=== PATIENT | male | born 2000 | race African-American/Black ===

== ENCOUNTER 2024-07-31 13:49 | Inpatient (IN) ==
[2024-07-31 16:03] LABS: Urine Appearance Clear; Urine Bilirubin Negative (Negative); Urine Blood 3+ (Negative); Urine Glucose Negative (Negative); Urine Ketones Negative (Negative); Urine Nitrite Negative (Negative); Urine Protein 1+ (>=30 mg/dL) (Negative); Urine Specific Gravity 1.005 (1.002-1.030); Urine Urobilinogen Negative (Negative)
[2024-07-31 16:04] LABS: Urine Bacteria Absent /HPF (Absent); Urine Red Blood Cell Trace(0-2/hpf) /HPF (0-Trace); Urine White Blood Cell Trace(0-5/hpf) /HPF (0-Trace)
[2024-07-31 16:14] LABS: ABS Basophils 0.1 10^3/uL (0.0-0.1); ABS Eosinophils 0.1 10^3/uL (0.0-0.5); ABS Lymphocytes 2.4 10^3/uL (1.0-4.8); ABS Monocytes 0.9 10^3/uL (0.0-1.1); ABS Nucleated RBC 0.01 10^3/ul; Eosinophil % 0.6 %; Hematocrit 48.8 % (38-53); Hemoglobin 15.8 g/dL (13.2-16.3); Mean Corpuscular Hemoglobin 27.6 pg (27-33); Mean Corpuscular Hgb Conc 32.4 g/dL (31-36); Mean Corpuscular Volume 85.1 fL (80-97); Mean Platelet Volume 9.4 fL (7.5-11.2); Nucleated Red Blood Cells % 0.1 %/100WBC (0.0-0.8); Platelet Count 222 10^3/uL (150-450); Red Blood Count 5.74 10^6/uL (4.06-5.63); Red Cell Distribution Width 16.3 % (12-17); White Blood Count 10.4 10^3/uL (3.6-10.2)
[2024-07-31 16:26] LABS: Urine Color Amber
[2024-07-31] MEDS: Lactated Ringers 1000 ml BAG 1,000 ML IV ONE ×3 (17:04→18:45)
[2024-07-31 17:27] LABS: Blood Urea Nitrogen 9 mg/dL (6-24); CO2 Carbon Dioxide 35 mmol/L (22-32); Calcium 9.6 mg/dL (8.6-10.3); Chloride 103 mmol/L (101-111); Creatinine, Serum 0.99 mg/dL (0.67-1.17); Glucose 79 mg/dL (70-100); Potassium 4.3 mmol/L (3.5-5.0); Sodium 138 mmol/L (135-145); eGFR CKD-EPI 108.4 (>60)
[2024-07-31 17:45] LABS: AST 1436 U/L (13-39)
[2024-07-31 18:27] LABS: Creatine Kinase 200673 U/L (10-223)
[2024-07-31 18:35] LABS: ALT 321 U/L (7-52); Albumin 4.5 g/dL (3.5-5.7); Albumin/Globulin Ratio 1.9 (1-3); Alkaline Phosphatase 48 U/L (35-149); Globulin 2.4 g/dL (2-4); Magnesium 2.2 mg/dL (1.9-2.7); Total Bilirubin 1.1 mg/dL (0.2-1.0); Total Protein 6.9 g/dL (6.4-8.9)
[2024-07-31] MEDS: Lactated Ringers 1000 ml BAG 1,000 ML IV SCH ×2 (21:02→22:20)
[2024-08-01 07:50] LABS: ABS Eosinophils 0.2 10^3/uL (0.0-0.5); ABS Lymphocytes 2.4 10^3/uL (1.0-4.8); ABS Monocytes 0.7 10^3/uL (0.0-1.1); ABS Neutrophils 4.5 10^3/uL (1.5-7.6); ABS Nucleated RBC 0.01 10^3/ul; Eosinophil % 2.9 %; Hematocrit 43.6 % (38-53); Hemoglobin 14.5 g/dL (13.2-16.3); Lymphocyte % 30.8 %; Mean Corpuscular Hemoglobin 28.1 pg (27-33); Mean Corpuscular Hgb Conc 33.3 g/dL (31-36); Mean Corpuscular Volume 84.2 fL (80-97); Mean Platelet Volume 9.5 fL (7.5-11.2); Nucleated Red Blood Cells % 0.1 %/100WBC (0.0-0.8); Platelet Count 195 10^3/uL (150-450); Red Blood Count 5.17 10^6/uL (4.06-5.63); Red Cell Distribution Width 16.1 % (12-17); White Blood Count 7.9 10^3/uL (3.6-10.2)
[2024-08-01 08:24] LABS: Creatinine, Serum 0.92 mg/dL (0.67-1.17); Potassium 4.8 mmol/L (3.5-5.0); eGFR CKD-EPI 118.4 (>60)
[2024-08-01 08:42] LABS: Albumin 3.6 g/dL (3.5-5.7); Albumin/Globulin Ratio 1.7 (1-3); Globulin 2.1 g/dL (2-4); Magnesium 1.9 mg/dL (1.9-2.7); Phosphorus 4.3 mg/dL (2.5-5.0); Total Bilirubin 1.3 mg/dL (0.2-1.0); Total Protein 5.7 g/dL (6.4-8.9)
[2024-08-01 10:04] LABS: Uric Acid 4.6 mg/dL (4.4-7.6)
[2024-08-01] MEDS: Lactated Ringers 1000 ml BAG 1,000 ML IV SCH ×2 (10:09→20:05)
[2024-08-01 15:20] LABS: Blood Urea Nitrogen 9 mg/dL (6-24); CO2 Carbon Dioxide 40 mmol/L (22-32); Chloride 106 mmol/L (101-111); Creatinine, Serum 1.11 mg/dL (0.67-1.17); Glucose 111 mg/dL (70-100); Potassium 4.5 mmol/L (3.5-5.0); Sodium 140 mmol/L (135-145); eGFR CKD-EPI 94.5 (>60)
[2024-08-01 16:31] LABS: ALT 494 U/L (7-52); AST 1873 U/L (13-39); Albumin 4.1 g/dL (3.5-5.7); Alkaline Phosphatase 45 U/L (35-149); Globulin 2.1 g/dL (2-4); Total Bilirubin 0.9 mg/dL (0.2-1.0); Total Protein 6.2 g/dL (6.4-8.9)
[2024-08-01 17:25] LABS: Creatine Kinase 157281 U/L (10-223)
[2024-08-01] MEDS ORDERED: Lactated Ringers 1000 ml BAG 1,000 ML IV SCH (19:00)
[2024-08-01 21:44] LABS: INR 1.07 (0.85-1.14)
[2024-08-01 22:21] LABS: Albumin/Globulin Ratio 1.8 (1-3); Alkaline Phosphatase 46 U/L (35-149); Blood Urea Nitrogen 9 mg/dL (6-24); Calcium 9.5 mg/dL (8.6-10.3); Chloride 104 mmol/L (101-111); Creatinine, Serum 1.09 mg/dL (0.67-1.17); Globulin 2.2 g/dL (2-4); Glucose 88 mg/dL (70-100); Magnesium 1.9 mg/dL (1.9-2.7); Potassium 4.6 mmol/L (3.5-5.0); Sodium 138 mmol/L (135-145); Total Bilirubin 0.5 mg/dL (0.2-1.0); Total Protein 6.2 g/dL (6.4-8.9); eGFR CKD-EPI 96.6 (>60)
[2024-08-01 22:24] LABS: CO2 Carbon Dioxide 41 mmol/L (22-32)
[2024-08-01 22:34] LABS: ALT 562 U/L (7-52); AST 2091 U/L (13-39)
[2024-08-01 23:13] LABS: Creatine Kinase 261248 U/L (10-223)
[2024-08-02 05:36] LABS: ABS Eosinophils 0.2 10^3/uL (0.0-0.5); ABS Lymphocytes 2.4 10^3/uL (1.0-4.8); ABS Monocytes 0.7 10^3/uL (0.0-1.1); ABS Neutrophils 4.3 10^3/uL (1.5-7.6); ABS Nucleated RBC 0.01 10^3/ul; Eosinophil % 3.2 %; Hematocrit 41.5 % (38-53); Hemoglobin 13.7 g/dL (13.2-16.3); Mean Corpuscular Hemoglobin 27.7 pg (27-33); Mean Corpuscular Volume 83.8 fL (80-97); Mean Platelet Volume 9.6 fL (7.5-11.2); Nucleated Red Blood Cells % 0.1 %/100WBC (0.0-0.8); Platelet Count 185 10^3/uL (150-450); Red Blood Count 4.95 10^6/uL (4.06-5.63); Red Cell Distribution Width 15.8 % (12-17); White Blood Count 7.7 10^3/uL (3.6-10.2)
[2024-08-02 06:12] LABS: Blood Urea Nitrogen 7 mg/dL (6-24); CO2 Carbon Dioxide 38 mmol/L (22-32); Calcium 9.6 mg/dL (8.6-10.3); Chloride 104 mmol/L (101-111); Creatinine, Serum 0.92 mg/dL (0.67-1.17); Glucose 87 mg/dL (70-100); Potassium 4.2 mmol/L (3.5-5.0); Sodium 136 mmol/L (135-145); eGFR CKD-EPI 118.4 (>60)
[2024-08-02 07:07] LABS: ALT 552 U/L (7-52); AST 1939 U/L (13-39); Albumin 3.8 g/dL (3.5-5.7); Albumin/Globulin Ratio 1.9 (1-3); Alkaline Phosphatase 38 U/L (35-149); Magnesium 1.8 mg/dL (1.9-2.7); Phosphorus 3.9 mg/dL (2.5-5.0); Total Bilirubin 0.7 mg/dL (0.2-1.0); Total Protein 5.8 g/dL (6.4-8.9)
[2024-08-02 07:39] LABS: Creatine Kinase 188888 U/L (10-223)
[2024-08-02] MEDS: Lactated Ringers 1000 ml BAG 1,000 ML IV SCH ×2 (08:44→11:53)
[2024-08-02] MEDS: Magnesium Sulfate 2 gm BAG 2 GM/50 ML BAG IVPB ONE (09:31)
[2024-08-02 14:04] LABS: Blood Urea Nitrogen 9 mg/dL (6-24); CO2 Carbon Dioxide 40 mmol/L (22-32); Calcium 10.1 mg/dL (8.6-10.3); Chloride 103 mmol/L (101-111); Creatinine, Serum 1.03 mg/dL (0.67-1.17); Glucose 126 mg/dL (70-100); Potassium 4.4 mmol/L (3.5-5.0); Sodium 138 mmol/L (135-145); eGFR CKD-EPI 103.4 (>60)
[2024-08-02 14:19] LABS: Hematocrit 43.1 % (38-53); Hemoglobin 14.6 g/dL (13.2-16.3); Mean Corpuscular Hemoglobin 28.5 pg (27-33); Mean Corpuscular Hgb Conc 33.8 g/dL (31-36); Mean Corpuscular Volume 84.3 fL (80-97); Red Blood Count 5.11 10^6/uL (4.06-5.63); Red Cell Distribution Width 15.8 % (12-17); White Blood Count 8.3 10^3/uL (3.6-10.2)
[2024-08-02 14:27] LABS: ALT 673 U/L (7-52); AST 2252 U/L (13-39)
[2024-08-02 14:48] LABS: ABS Basophils 0.1 10^3/uL (0.0-0.1); ABS Eosinophils 0.2 10^3/uL (0.0-0.5); ABS Lymphocytes 1.6 10^3/uL (1.0-4.8); ABS Monocytes 0.4 10^3/uL (0.0-1.1); Albumin 4.3 g/dL (3.5-5.7); Albumin/Globulin Ratio 1.9 (1-3); Alkaline Phosphatase 53 U/L (35-149); Eosinophil % 1.9 %; Globulin 2.3 g/dL (2-4); Lymphocyte % 19.7 %; Mean Platelet Volume 10.4 fL (7.5-11.2); Nucleated Red Blood Cells % 0.1 %/100WBC (0.0-0.8); Platelet Count 200 10^3/uL (150-450); Total Bilirubin 0.6 mg/dL (0.2-1.0); Total Protein 6.6 g/dL (6.4-8.9)
[2024-08-02 15:29] LABS: Creatine Kinase 69528 U/L (10-223)
[2024-08-03] MEDS: Lactated Ringers 1000 ml BAG 1,000 ML IV SCH ×2 (08:22→10:05)
[2024-08-03 09:08] LABS: Hematocrit 43.5 % (38-53); Hemoglobin 14.4 g/dL (13.2-16.3); Mean Corpuscular Hemoglobin 27.9 pg (27-33); Mean Corpuscular Hgb Conc 33.2 g/dL (31-36); Red Blood Count 5.18 10^6/uL (4.06-5.63); Red Cell Distribution Width 15.8 % (12-17)
[2024-08-03 09:22] LABS: Calcium 9.5 mg/dL (8.6-10.3); Creatinine, Serum 0.83 mg/dL (0.67-1.17); Potassium 4.4 mmol/L (3.5-5.0); eGFR CKD-EPI 124.6 (>60)
[2024-08-03 09:31] LABS: Albumin/Globulin Ratio 1.7 (1-3); Globulin 2.3 g/dL (2-4); Total Bilirubin 0.7 mg/dL (0.2-1.0); Total Protein 6.3 g/dL (6.4-8.9)
[2024-08-03 09:35] LABS: ABS Basophils 0.1 10^3/uL (0.0-0.1); ABS Eosinophils 0.2 10^3/uL (0.0-0.5); ABS Lymphocytes 1.7 10^3/uL (1.0-4.8); ABS Monocytes 0.4 10^3/uL (0.0-1.1); ABS Neutrophils 4.2 10^3/uL (1.5-7.6); ABS Nucleated RBC 0.01 10^3/ul; Eosinophil % 2.9 %; Large Platelets Present; Lymphocyte % 26.5 %; Nucleated Red Blood Cells % 0.1 %/100WBC (0.0-0.8); Platelet Count 203 10^3/uL (150-450); Tear Drop Cells 2+; White Blood Count 6.5 10^3/uL (3.6-10.2)
[2024-08-03 22:01] LABS: Calcium 9.9 mg/dL (8.6-10.3); Creatinine, Serum 0.86 mg/dL (0.67-1.17); Potassium 4.5 mmol/L (3.5-5.0); eGFR CKD-EPI 123.2 (>60)
[2024-08-03 22:23] LABS: Albumin 4.1 g/dL (3.5-5.7); Albumin/Globulin Ratio 1.8 (1-3); Globulin 2.3 g/dL (2-4); Total Bilirubin 0.4 mg/dL (0.2-1.0); Total Protein 6.4 g/dL (6.4-8.9)
[2024-08-04 06:11] LABS: ABS Eosinophils 0.2 10^3/uL (0.0-0.5); ABS Lymphocytes 2.2 10^3/uL (1.0-4.8); ABS Monocytes 0.4 10^3/uL (0.0-1.1); ABS Neutrophils 4.1 10^3/uL (1.5-7.6); Hematocrit 41.6 % (38-53); Hemoglobin 13.9 g/dL (13.2-16.3); Mean Corpuscular Hemoglobin 28.2 pg (27-33); Mean Corpuscular Hgb Conc 33.4 g/dL (31-36); Mean Corpuscular Volume 84.4 fL (80-97); Mean Platelet Volume 10.1 fL (7.5-11.2); Nucleated Red Blood Cells % 0.1 %/100WBC (0.0-0.8); Platelet Count 192 10^3/uL (150-450); Red Blood Count 4.93 10^6/uL (4.06-5.63); Red Cell Distribution Width 15.7 % (12-17)
[2024-08-04 06:24] LABS: Calcium 9.2 mg/dL (8.6-10.3); Creatinine, Serum 0.96 mg/dL (0.67-1.17); Potassium 4.3 mmol/L (3.5-5.0); eGFR CKD-EPI 112.5 (>60)
[2024-08-04 06:26] LABS: Magnesium 1.8 mg/dL (1.9-2.7); Phosphorus 4.7 mg/dL (2.5-5.0)
[2024-08-04 10:19] VITALS: BP 137/82
== END 2024-08-04 11:42 | disposition home or self-care (01) | DRG 558 ==
LOC: ED 13:49 → EDHOLD 13:49 → SUATTDRO 19:27 → SSU 21:12 → MEDTELE 08-03 15:28
PROVIDERS: ADMIT Internal Medicine; ATTEND Student in an Organized Health Care Education/Training Program